=== PATIENT | female | born 1980 | race Caucasian/White ===

== ENCOUNTER 2017-09-28 07:57 | Emergency (ER) | payer SELFPAY ==
[2017-09-28] MEDS ORDERED: Ondansetron ODT 4 MG TAB ONE (08:40)
[2017-09-28] MEDS ORDERED: AMOXicillin 250 MG CAP ONE (08:40)
[2017-09-28] MEDS ORDERED: Phenergan/Codeine 10-6.25mg/5ml UDCUP ONE (08:40)
== END 2017-09-28 08:57 | disposition home or self-care (01) ==
LOC: MADERS 07:57
DX: J20.9 Acute bronchitis, unspecified (principal); F17.210 Nicotine dependence, cigarettes, uncomplicated
CPT/HCPCS: 99283; Q0162

== ENCOUNTER 2020-04-10 21:49 | Emergency (ER) | payer SELFPAY ==
--- NOTE | 2020-04-10 22:19 | RAD ---
Left ankle 3 views HISTORY: Left ankle injury. FINDINGS: Ankle mortise and talar dome are intact. No acute fracture or dislocation. Mild osteoarthritic changes. IMPRESSION : No acute osseous abnormalities are demonstrated.
== END 2020-04-10 23:00 | disposition home or self-care (01) ==
LOC: MADERS 21:49
DX: S93.432A Sprain of tibiofibular ligament of left ankle, initial encounter (principal); F17.210 Nicotine dependence, cigarettes, uncomplicated; W17.2XXA Fall into hole, initial encounter; Y92.007 Garden or yard of unspecified non-institutional (private) residence as the place of occurrence of the external cause

== ENCOUNTER 2020-04-17 16:44 | Emergency (ER) | payer SELFPAY ==
[2020-04-17 17:44] LABS: #Basophils 0.1 thou/uL (0.0-0.2); #Eosinphils 0.3 thou/uL (0.0-0.7); #Lymphocytes 1.5 thou/uL (1.20-3.40); #Monocytes 0.4 thou/uL (0.11-0.59); #Neutrophils 6.5 thou/uL (1.40-6.50); %Basophils 0.8 % (0.0-1.0); %Eosinophils 2.9 % (0.0-10.0); %Lymphocytes 17.5 % (21.0-51.0); %Monocytes 4.2 % (0.0-10.0); %Neutrophils 74.5 % (42.0-75.0); Hemoglobin 15.5 g/dL (12.0-16.0); Mean Corpuscular HGB CONC 32.9 g/dL (32.0-36.0); Mean Corpuscular Hemoglobin 28.7 pg (27.0-31.0); Mean Corpuscular Volume 87.3 fL (78.0-98.0); Mean Platelet Volume 7.9 fL (7.4-10.4); Platelet Count 262 thou/uL (130-400); RBC Distribution Width 11.8 % (11.5-14.5); White Blood Cell (WBC) Count 8.8 thou/uL (4.8-10.8)
--- NOTE | 2020-04-17 17:46 | RAD ---
CHEST ONE VIEW: 04/17/20 INDICATIONS: History of tingling. COMPARISON: Prior exam dated 01/04/15. FINDINGS: The lungs are clear. Heart size is normal. No pleural effusion or pneumothorax is evident. No acute o sseous abnormality is evident. IMPRESSION: No definite acute cardiopulmonary abnormality. POS: [facility]
[2020-04-17 17:59] LABS: ALT (SGPT) 23 U/L (8-55); AST (SGOT) 22 U/L (5-34); Alkaline Phosphatase 90 U/L (40-110); Anion Gap 15 mmol/L (10-20); BUN (Urea Nitrogen) 24 mg/dL (7.0-18.7); Bilirubin, Total 0.3 mg/dL (0.2-1.2); CK (CPK) 169 U/L (29-168); Calc. Creatinine Clearance 0 mL/min (70-130); Calcium 9.1 mg/dL (7.8-10.44); Carbon Dioxide 24 mmol/L (22-29); Chloride 106 mmol/L (98-107); Estimated GFR-MDRD 65; Globulin 3.6 g/dL (2.4-3.5); Glucose 154 mg/dL (70-105); Potassium 3.9 mmol/L (3.5-5.1); Protein, Total 7.6 g/dL (6.0-8.3); Sodium 141 mmol/L (136-145)
== END 2020-04-17 18:30 | disposition home or self-care (01) ==
LOC: MADERS 16:44
DX: R20.2 Paresthesia of skin (principal); F17.210 Nicotine dependence, cigarettes, uncomplicated
CPT/HCPCS: 36415; 71045; 80053; 82550; 84484; 85025; 93005